=== PATIENT | female | born 1955 | race Caucasian/White ===

== ENCOUNTER → 2017-05-09 | Emergency (ER) | payer BC ==
[~2017-05-09] VITALS: Ht 162.6 cm; Wt 122.5 kg
[~2017-05-09] MED LIST: AMLODIPINE BESYL5 MG PO; BUDEPRION XL150 MG; CELECOXIB200 MG PO; CHLORTHALIDONE25 MG PO; COZAAR50 MG PO; EFFER-K 10 MEQ10 MEQ PO; ESCITALOPRAM OX20 MG PO; ETODOLAC400 MG PO; IBUPROFEN800 MG PO; IRBESARTAN-HCT1 EACH PO; LIPITOR40 MG PO; LOSARTAN-HCTZ1 EAC1 PO; MELOXICAM15 MG PO; NAPROXEN500 MG PO; NORCO 7.5-3251 EACH PO; ONDANSETRON HCL8 MG PO; ONDANSETRON ODT8 MG PO; PANTOPRAZOLE SO40 MG PO; VENLAFAXINE HC225 MG PO
== END ==
LOC: ED 19:35
DX: M75.91 Shoulder lesion, unspecified, right shoulder (principal); I10 Essential (primary) hypertension; Z88.8 Allergy status to other drugs, medicaments and biological substances; Z79.899 Other long term (current) drug therapy
CPT/HCPCS: 73030; 96372; 99283; J1885

== ENCOUNTER 2017-07-26 16:37 | Emergency (ER) | payer BC ==
[~2017-07-26] VITALS: Ht 162.6 cm; Wt 113.4 kg
[2017-07-26] MEDS ORDERED: PROVENTIL HFA6.7 GM INH (19:55)
[2017-07-26] MEDS ORDERED: ZITHROMAX250 MG PO (19:55)
== END 2017-07-26 20:02 | disposition home or self-care (01) ==
LOC: ED 16:37
DX: J20.9 Acute bronchitis, unspecified (principal); I10 Essential (primary) hypertension; Z88.8 Allergy status to other drugs, medicaments and biological substances; Z79.899 Other long term (current) drug therapy
CPT/HCPCS: 71046; 80053; 85025; 87502; 94640; 99283

== ENCOUNTER 2023-02-11 16:13 | Emergency (ER) | payer MEDICARE, OTHER ==
[~2023-02-11] VITALS: Ht 162.6 cm; Wt 132.9 kg
[~2023-02-11 16:13] MED LIST changes: +PROVENTIL HFA6.7 GM INH; +ZITHROMAX250 MG PO
[2023-02-11] MEDS ORDERED: SPIRONOLACTONE25 MG (16:28)
[2023-02-11] MEDS ORDERED: LISINOPRIL5 MG (16:29)
[2023-02-11] MEDS ORDERED: DILTIAZEM 24HR240 M1 (16:30)
[2023-02-11] MEDS ORDERED: METFORMIN HCL500 MG PO (16:30)
[2023-02-11 16:31] LABS: RBC 4.49 M/ul (4.3-5.7)
[2023-02-11 16:39] LABS: HEMATOCRIT 40.2 % (35.0-50.0); MCHC 32.4 g/dl (30-36); MCV 89.5 fl (81-99); PLATELET COUNT 280 K/uL (140-440); RDW 15.6 (10.5-15.0)
[2023-02-11 16:49] LABS: ALBUMIN 3.5 g/dL (3.4-5.0); ALBUMIN/GLOBULIN RATIO 0.9 (1.1-2.4); ANION GAP 12.7 (7-21); BILIRUBIN, TOTAL 0.3 ng/dL (0.2-1.0); BUN/CREATININE RATIO 30.48 (6.0-28.6); CALCIUM 9.1 mg/dL (8.5-10.1); CREATININE, SERUM 0.82 mg/dL (0.55-1.02); MAGNESIUM 1.8 mg/dL (1.8-2.4); POTASSIUM 3.7 mmol/L (3.5-5.1); PROTEIN, TOTAL 7.4 g/dL (6.4-8.2)
[2023-02-11 16:53] LABS: BASOPHILS, MANUAL DIFF 1; MONOCYTES, MANUAL DIFF 1; NEUTROPHILS, MANUAL DIFF 24
[2023-02-11 17:35] LABS: INFLUENZA B NAA NEGATIVE (NEGATIVE); RESPIRATORY SYNCYTIAL VIR NAA NEGATIVE (NEGATIVE)
[2023-02-11] MEDS ORDERED: VENTOLIN HFA18 GM INH (18:14)
[2023-02-11] MEDS ORDERED: PREDNISONE20 MG PO (18:14)
[2023-02-11 18:41] VITALS: BP 153/61
--- NOTE | 2023-02-11 21:23 | EKG ---
[facility] [address] [place] [address] Signed Normal sinus rhythm Left anterior fascicular block Cannot rule out Inferior infarct (masked by fascicular block?) , age undetermined Abnormal ECG When compared with ECG of 11-APR-2016 08:44, Left anterior fascicular block is now present Confirmed by Ally Syed MD () on 02/11/2023 9:22:53 PM Electronically Signed By: ALLY SYED MD 02/11/232122 PATIENT NAME: LOR BARRERA Electrocardiogram DATE OF : 59 PHYSICIAN: ALLY SYED MD REPORT #: [id number] REPORT IS CONFIDENTIAL AND NOT TO BE RELEASED WITHOUT AUTHORIZATION
[2023-02-13 10:10] LABS: LYMPHOCYTES, MANUAL DIFF 74
== END 2023-02-11 18:44 | disposition home or self-care (01) ==
LOC: ED 16:13
PROVIDERS: Emergency Medicine
DX: J44.1 Chronic obstructive pulmonary disease with (acute) exacerbation (principal); I11.0 Hypertensive heart disease with heart failure; I50.9 Heart failure, unspecified; C91.10 Chronic lymphocytic leukemia of B-cell type not having achieved remission; Z88.8 Allergy status to other drugs, medicaments and biological substances; Z79.899 Other long term (current) drug therapy
CPT/HCPCS: 36415; 71045; 80053; 83735; 83880; 84484; 85025; 87502; 93005; 93010; 94640; 99285-25; A9270; C9803; J7512; U0002

== ENCOUNTER 2024-01-10 10:11 | Emergency (ER) | payer MEDICARE, OTHER ==
[~2024-01-10] VITALS: Ht 162.6 cm; Wt 136.4 kg
[~2024-01-10 10:11] MED LIST changes: +DILTIAZEM 24HR240 M1; +LISINOPRIL5 MG; +METFORMIN HCL500 MG PO; +PREDNISONE10 MG PO; +PREDNISONE20 MG PO; +SPIRONOLACTONE25 MG; +VENTOLIN HFA18 GM INH
--- OUTSIDE RECORDS SUMMARY | 2024-01-10 10:12 | XMS ---
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 PHONE: [phone] Katherine has no Care Guidelines for this patient. Rafael VISIT COUNT (12 MO.) 3 [facility]. TOTAL 3 NOTE: Visits indicate total known visits. 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 - Shortness of breath 02/11/2023 16:14 [facility] TYPE: Emergency COMPLAINT: - DIFFICULTY BREATHING DIAGNOSES: - Allergy status to other drugs, medicaments and biological substances - Chronic lymphocytic leukemia of B-cell type not having achieved remission - Chronic obstructive pulmonary disease with (acute) exacerbation - Contact with and (suspected) exposure to COVID-19 - Heart failure, unspecified - Hypertensive heart disease with heart failure - Other senior living (current) drug therapy - Shortness of breath INPATIENT VISIT TRACKING (12 MO.) No inpatient visits to display in this time frame [email or web address]
[2024-01-10] MEDS ORDERED: PANTOPRAZOLE SODIUM 40 MG/10 ML VIAL IV ONE (10:45)
[2024-01-10] MEDS ORDERED: SODIUM CHLORIDE 0.9% 1,000 ML IV PRN (10:45)
[2024-01-10] MEDS ORDERED: ondansetron HCL 4 MG/2 ML VIAL IV ONE (10:45)
[2024-01-10 10:54] LABS: BASOPHILS 0.4 % (0-2); EOSINOPHILS 0.6 % (0-6); HEMOGLOBIN 13.1 g/dL (12.0-18.0); LYMPHOCYTES 63.6 % (24-44); MCH 29.4 (27-36); MCHC 32.8 g/dl (30-36); MCV 89.7 fl (81-99); MONOCYTES 2.5 % (0-12); NEUTROPHILS 32.9 % (39-80); PLATELET COUNT 272 K/uL (140-440); RBC 4.46 M/ul (4.3-5.7)
[2024-01-10 11:09] LABS: ALBUMIN 3.2 g/dL (3.4-5.0); ALBUMIN/GLOBULIN RATIO 0.89 (1.1-2.4); ANION GAP 13.7 (7-21); BILIRUBIN, TOTAL 0.7 ng/dL (0.2-1.0); BUN/CREATININE RATIO 11.68 (6.0-28.6); CALCIUM 8.9 mg/dL (8.5-10.1); CREATININE, SERUM 0.77 mg/dL (0.55-1.02); POTASSIUM 3.7 mmol/L (3.5-5.1); PROTEIN, TOTAL 6.8 g/dL (6.4-8.2)
[2024-01-10 11:10] LABS: BASOPHILS, MANUAL DIFF 1; EOSINOPHILS, MANUAL DIFF 1; LYMPHOCYTES, MANUAL DIFF 54; MONOCYTES, MANUAL DIFF 4; NEUTROPHILS, MANUAL DIFF 40
[2024-01-10 12:00] LABS: BILIRUBIN, URINE NEGATIVE (negative); BLOOD/HGB, URINE TRACE-I (Negative); KETONE, URINE NEGATIVE (Negative); LEUK ESTERASE, URINE NEGATIVE (negative); NITRITE, URINE NEGATIVE (negative)
[2024-01-10 12:09] LABS: BACTERIA, URINE 1+ /hpf (negative); CASTS, URINE NONE SEEN \\lpf; COLLECTION TYPE, URINE CLEAN CATCH; CRYSTALS, URINE NONE SEEN (0-1+); EPITHELIAL CELLS, URINE SQUAMOUS 3+ /lpf (0-1+); RED BLOOD CELLS, URINE 0-1 /hpf (0-5); REFLEX CULTURE, URINE No (No)
[2024-01-10] MEDS ORDERED: PROTONIX40 MG PO (12:44)
[2024-01-10] MEDS ORDERED: CEFDINIR300 MG PO (12:44)
[2024-01-10] MEDS ORDERED: METRONIDAZOLE500 MG PO (12:44)
[2024-01-10 13:05] VITALS: BP 167/42
== END 2024-01-10 12:57 | disposition home or self-care (01) ==
LOC: ED 10:11
PROVIDERS: Emergency Medicine
DX: K52.9 Noninfective gastroenteritis and colitis, unspecified (principal); I10 Essential (primary) hypertension; C91.10 Chronic lymphocytic leukemia of B-cell type not having achieved remission; Z99.81 Dependence on supplemental oxygen; Z88.8 Allergy status to other drugs, medicaments and biological substances; Z79.84 Long term (current) use of oral hypoglycemic drugs; Z79.899 Other long term (current) drug therapy
CPT/HCPCS: 36415; 74177; 80053; 81001; 83690; 85007; 85025; 96375; 99284-25; J2405; J2470; J7030; Q9967

== ENCOUNTER 2024-08-03 13:53 | Emergency (ER) | payer MEDICARE, OTHER ==
[~2024-08-03] VITALS: Ht 162.6 cm; Wt 130.0 kg
[~2024-08-03 13:53] MED LIST changes: +CEFDINIR300 MG PO; +METRONIDAZOLE500 MG PO; +PROTONIX40 MG PO
[2024-08-03] MEDS ORDERED: OZEMPIC0.25 MG/02 SQ (17:08)
[2024-08-03] MEDS ORDERED: VITAMIN D21250 MCG (17:08)
[2024-08-03] MEDS ORDERED: ATORVASTATIN CA40 MG (17:09)
[2024-08-03] MEDS ORDERED: METFORMIN HCL500 M1 (17:09)
[2024-08-03] MEDS ORDERED: FLUOXETINE HCL20 MG (17:09)
[2024-08-03] MEDS ORDERED: ZOLPIDEM TARTRA10 MG (17:09)
[2024-08-03] MEDS ORDERED: TRAMADOL HCL50 MG PO (19:36)
[2024-08-03] MEDS ORDERED: TRAMADOL HCL 50 MG HOME.PACK PO ONE (19:45)
[2024-08-03 20:10] VITALS: BP 175/52
== END 2024-08-03 20:12 | disposition home or self-care (01) ==
LOC: ED 13:53
DX: M25.561 Pain in right knee (principal); W18.40XA Slipping, tripping and stumbling without falling, unspecified, initial encounter; I10 Essential (primary) hypertension; Z88.8 Allergy status to other drugs, medicaments and biological substances
CPT/HCPCS: 73560; 99283; A9270